=== PATIENT | female | born 1965 | race Caucasian/White ===

== ENCOUNTER → 2022-08-10 | Outpatient (CLI) | payer OTHER, MEDICAID, SELFPAY ==
--- NOTE | 2022-08-10 09:45 | RAD_ITS ---
STUDY: X-RAY CHEST REASON FOR EXAM: Female, 56 years old. Pain. TECHNIQUE: Frontal and lateral views of the chest. COMPARISON: None. FINDINGS: Hyperinflation. Healed granulomatous changes in both apices. Scattered healed parenchymal granulomas. There is no demonstrated pleural abnormality. Normal size heart. Normal mediastinum and radha. Normal visualized pulmonary arteries. Normal visualized aortic arch and descending thoracic aorta. Normal visualized thoracic spine. Normal visualized ribs, clavicles, and shoulders. There is no demonstrated abnormality of the visualized soft tissue structures of the upper abdomen. RAD/Chest PA and Lateral IMPRESSION: Hyperinflation with granulomatous changes. No active or acute cardiopulmonary disease. Electronically Signed: Favian Sibley, at 12:20 EDT ,
[2022-08-10 12:56] LABS: Erythrocyte Sedimentation Rate 6 mm/hr (0-30)
[2022-08-10 12:59] LABS: Absolute Lymphocyte Count 2.34 X10^3/uL (0.83-4.51); Absolute Neutrophil Count 2.8 X10^3/uL (2.0-7.7); Basophil# 0.04 X10^3/uL; Basophil% 0.7 % (0-1); Eosinophil# 0.13 X10^3/uL; Eosinophils% 2.3 % (0-5); Hematocrit 37.7 % (37-47); Hemoglobin 12.6 g/dL (12.0-15.0); Lymphocyte # 2.34 X10^3/ul (0.83-4.51); Lymphocyte % 40.8 % (19-41); Mean Corp Hgb Conc 33.4 g/dL (32-36); Mean Corpuscular Hgb 31.1 pg (27.0-32.0); Mean Corpuscular Volume 93.1 fL (81-99); Mean Platelet Vol. 10.8 fl (6.2-12.0); Monocyte# 0.37 X10^3/uL; Monocyte% 6.5 % (0-10); NRBC Flagged by Analyzer 0 % (0-5); Neutrophil # 2.83 X10^3/uL (2.7-7.7); Neutrophil % 49.4 % (47-70); Platelet Count 235 K/mm3 (150-450); RBC Distribution Width CV 11.7 % (11.6-14.6); Red Blood Count 4.05 M/mm3 (4.2-5.4); White Blood Count 5.7 K/mm3 (4.4-11.0)
[2022-08-10 13:13] LABS: ALB/GLOB Ratio 1.2 RATIO (0.9-2.4); AST(SGOT) 20 U/L (15-37); Alanine Aminotransfer ALT/SGPT 26 U/L (13-56); Alkaline Phosphatase 62 U/L (45-117); Anion Gap 2 (5-15); BUN 9 mg/dL (7-18); BUN/Creat Ratio 15.1 RATIO (10-20); CRP < 2.90 mg/L (0.0-3.0); Chloride 108 mmol/L (98-107); EST Glomerular Filtration Rate 111 mL/min (>60); Est Glom Filt Rate - Afr Amer 134 mL/min (>60); Globulin 3.2 g/dL (2.2-4.2); Glucose 90 mg/dL (74-106); Potassium 3.7 mmol/L (3.5-5.1); Protein, Total 7.2 g/dL (6.4-8.2); Sodium Level 139 mmol/L (136-145)
[2022-08-10 13:55] LABS: Hepatitis B Surface Antibody Reactive; Hepatitis B Surface Antigen Non-Reactive (Nonreactive); Hepatitis C Antibody Non-Reactive (Nonreactive)
[2022-08-11 12:09] LABS: ANTINUCLEAR ANTIBODIES DIRECT Negative (Negative)
[2022-08-12 15:08] LABS: CCP IgG Antibodies > 250 units (0-19); QNTFERON TB Mitogen Value > 10.00 IU/mL (.); QNTFERON TB Nil Value 0.03 IU/mL (.); QNTFERON TB1+ Ag Value 0.05 IU/mL (.); QNTFERON TB2+ Ag Value 0.06 IU/mL (.); QNTIFERON TB Positive Criteria Negative (Negative)
== END | disposition home or self-care (01) ==
LOC: MTLAB 09:42
PROVIDERS: PCP Family Medicine; Referring Provider Internal Medicine Rheumatology; Visit Provider Internal Medicine Rheumatology
DX: M05.79 Rheumatoid arthritis with rheumatoid factor of multiple sites without organ or systems involvement (principal); Z79.899 Other long term (current) drug therapy
CPT/HCPCS: 36415; 71046; 80053; 85025; 85652; 86038; 86140; 86200; 86431; 86480; 86706; 86803; 87340

== ENCOUNTER → 2023-11-22 | Outpatient (CLI) | payer OTHER, SELFPAY ==
--- NOTE | 2023-11-22 10:30 | RAD_ITS ---
INDICATION: preprocedure EXAMINATION/TECHNIQUE: X-RAY - XR Chest 2 Views COMPARISON: Prior study dated: 08/10/2022 FINDINGS: LINES/DEVICES: None. LUNGS: The lungs are hyperexpanded. No consolidation, edema or effusion. No pneumothorax. Mild pleural thickening at the lung apices is unchanged. MEDIASTINUM AND CARDIOVASCULAR STRUCTURES: Cardiac silhouette not enlarged. Central airways and mediastinal contour are unremarkable. BONES AND SOFT TISSUES: No acute abnormality. RAD/Chest PA and Lateral IMPRESSION: No acute pulmonary finding. Electronically Signed: Avila Luna MD at 22:08 EDT ,
== END | disposition home or self-care (01) ==
LOC: RAD 10:18
PROVIDERS: PCP Family Medicine; Referring Provider Physician Assistant Medical; Visit Provider Physician Assistant Medical
DX: R94.39 Abnormal result of other cardiovascular function study (principal)
CPT/HCPCS: 71046

== ENCOUNTER 2023-11-28 08:02 | Day surgery (SDC) | payer OTHER, SELFPAY ==
[2023-11-22 11:29] LABS: Absolute Lymphocyte Count 2.49 X10^3/uL (0.83-4.51); Absolute Neutrophil Count 2.4 X10^3/uL (2.0-7.7); Basophil# 0.03 X10^3/uL; Basophil% 0.6 % (0-1); Eosinophil# 0.06 X10^3/uL; Eosinophils% 1.1 % (0-5); Hematocrit 37.2 % (37-47); Hemoglobin 12.3 g/dL (12.0-15.0); Lymphocyte # 2.49 X10^3/ul (0.83-4.51); Mean Corp Hgb Conc 33.1 g/dL (32-36); Mean Corpuscular Hgb 30.1 pg (27.0-32.0); Mean Corpuscular Volume 91.2 fL (81-99); Mean Platelet Vol. 9.8 fl (6.2-12.0); Monocyte# 0.42 X10^3/uL; Monocyte% 7.8 % (0-10); NRBC Flagged by Analyzer 0 % (0-5); Neutrophil % 44.3 % (47-70); Platelet Count 281 K/mm3 (150-450); RBC Distribution Width CV 12.1 % (11.6-14.6); RBC Distribution Width SD 40.5 fl (35.1-43.9); Red Blood Count 4.08 M/mm3 (4.2-5.4); White Blood Count 5.4 K/mm3 (4.4-11.0)
[2023-11-22 11:38] LABS: Partial Thromboplast Time 31.5 Seconds (24.1-36.2); Prothrombin Time (Protime)PT. 13.1 SECONDS (11.7-14.9)
[2023-11-22 12:03] LABS: Anion Gap 4 (5-15); BUN 8 mg/dL (7-18); BUN/Creat Ratio 13.2 RATIO (10-20); Calcium,Total 9.9 mg/dL (8.5-10.1); Chloride 107 mmol/L (98-107); Creatinine, Serum 0.61 mg/dL (0.55-1.02); EST Glomerular Filtration Rate 108 mL/min (>60); Est Glom Filt Rate - Afr Amer 131 mL/min (>60); Glucose 93 mg/dL (74-106); Potassium 4.2 mmol/L (3.5-5.1); Sodium Level 141 mmol/L (136-145)
[2023-11-25 08:11] VITALS: BMI 17.9
--- NOTE | 2023-11-28 09:50 | ECHOD_ITS ---
Reason For Study: Takotsubo Syndrome Procedure This was a 2D Doppler, Color Flow transthoracic echocardiogram. Performed in slab miller operator holding room. Left Ventricle Normal LV size. The left ventricular ejection fraction is 45 %. There is mild to moderate global hypokinesis of the left ventricle. Right Ventricle Normal RV size. Normal systolic function. Atria Normal left atrium. Normal right atrium. Mitral Valve Normal mitral valve. Mild mitral valve prolapse. Tricuspid Valve Normal tricuspid valve. Aortic Valve Normal aortic valve. Trisinus/trileaflet aortic valve. Pulmonic Valve Normal pulmonic valve. Great Vessels Normal aortic root. The pulmonary artery is normal size. Inferior vena cava collapse with respiration. Pericardium/Pleural No pericardial effusion. MMode/2D Measurements & Calculations LVIDd: 5.0 cm IVSd: 0.81 cm Ao root diam: 2.8 cm LVIDs: 3.7 cm LVPWd: 0.87 cm RVDd: 3.3 cm FS: 25.1 % LAV(MOD-bp): 59.8 ml LVAd ap4: 33.8 cm2 LVAd ap2: 33.7 cm2 LAV(MOD-bp) Indexed: 39.3 ml/m2 LVLd ap4: 8.2 cm LVLd ap2: 8.4 cm LAV(MOD-sp2): 107.5 ml EDV(MOD-sp4): 118.6 ml EDV(MOD-sp2): 111.6 ml LAV(MOD-sp4): 32.9 ml EDV(sp4-el): 118.5 ml EDV(sp2-el): 114.2 ml LVAs ap4: 24.3 cm2 LVAs ap2: 22.9 cm2 LVLs ap4: 7.8 cm LVLs ap2: 7.3 cm ESV(MOD-sp4): 62.9 ml ESV(MOD-sp2): 60.6 ml ESV(sp4-el): 64.2 ml ESV(sp2-el): 60.8 ml EF(MOD-sp4): 47.0 % EF(MOD-sp2): 45.7 % EF(sp4-el): 45.8 % SV(MOD-sp4): 55.7 ml SV(MOD-sp2): 51.0 ml SV(sp4-el): 54.3 ml LA dimension(2D): 2.9 cm LA A4 area: 14.7 cm2 RA A4 area: 13.5 cm2 TAPSE: 2.1 cm Time Measurements MV dec time: 0.25 sec Doppler Measurements & Calculations MV E max tony: 75.6 cm/sec Lat Peak E' Tony: 6.8 cm/sec Med Peak E' Tony: 7.9 cm/sec MV A max tony: 63.3 cm/sec E/E' lat: 11.2 E/E' med: 9.5 MV E/A: 1.2 MV dec slope: 304.1 cm/sec2 Ao V2 max: 129.0 cm/sec LV V1 max: 82.0 cm/sec Ao max P.7 mmHg LV V1 max P.8 mmHg PA V2 max: 69.0 cm/sec ECHO/Echo Complete Interpretation Summary Normal LV size. The left ventricular ejection fraction is 45 %. There is mild to moderate global hypokinesis of the left ventricle. Mild mitral valve prolapse. Ordering Physician: Adarsh Melton Referring Physician: Zahraa Barlow Performed By: Gely Burton RDCS
--- NOTE | 2023-11-28 09:57 | CL.D_ITS ---
Patient Name: ELIEZER GOMEZ Study Date: 11/28/2023 Performing: Adarsh Melton MD Ht: 65 inches 165.1 cm : 1965 Wt: 108 lbs 48.99 kg Age: 58 Gender: female BSA: 1.52 PROCEDURE(S) PERFORMED DC01-(37436)LHC/COR/LV CLINICAL PROFILE AND INDICATIONS Indications: Suspected CAD Heart Failure: None Stress/Imaging Date: 11/12/23Stress Test with SPECT MPI: Positive Low Risk CAD Presentations: Stable angina. CONCLUSIONS Non obstructive coronary arteries Cardiomyopathy: Takotsubo RECOMMENDATIONS Medical therapy DESCRIPTION OF PROCEDURE The patient arrived to the procedure lab. The risks and benefits of the procedure as well as a full description of our services here and current unavailability of surgical backup were fully explained to the patient and/or their significant other prior to the catheterization. The Timeout was completed, verifying the correct patient and procedure. The patient's procedural site was prepped and draped in the usual fashion. Local anesthetic was given subcutaneously to right radial region with Lidocaine 2%. Using a modified Seldinger technique, arterial access was obtained via the right radial artery, a 6Fr sheath was inserted. Right Coronary Artery selective angiography was then performed in multiple views using a 5 Fr. 4.0 [place] catheter. Left Coronary Artery selective angiography was performed in multiple views using a 5 Fr. 4.0 [place] catheter. Left Ventriculography was performed in WILKES projection using a 5 Fr. Pigtail catheter. LV to AO pullback pressures were then recorded.The arterial sheath was pulled and a TR Band was applied for hemostasis CORONARY ANGIOGRAPHY DOMINANCE: Right Dominant LEFT HEART ASSESSMENT Left Ventricular Ejection Fraction: by LV Gram 45 % Anterior Hypokinesis - Mild Depressed Left Ventricular systolic function Consistent with Takotsubo cardiomyopathy. LEFT MAIN: Angiographically normal LEFT ANTERIOR DESCENDING ARTERY: Mild luminal irregularities less than 30% DIAGONAL 1: Ostial - 40 % Stenosis CIRCUMFLEX ARTERY: No significant disease noted RIGHT CORONARY ARTERY: Moderate luminal irregularities up to 50% COMPLICATIONS No Complications PROCEDURE MEDICATIONS Fentanyl 50 mcg IV Versed 1 mg IV Versed 1 mg IV Fentanyl 25 mcg IV Oxygen: 2 L/min via nasal cannula Heparin given IA 11/28/2023 09:36:15 Verapamil 2.5mg, Ntg 100mcgs, 3000 units of Heparin given IA 11/28/2023 09:36:15 SUMMARY OF HEMODYNAMIC DATA Time AIR REST ECG 08:37:40 AO 106/67 (85) SA 09:39:21 LV 126/0, 5 09:45:42 LV 125/-1, 6 09:45:50 LV 133/0, 7 09:46:42 LVp 137/-2, 8 09:46:48 AOp 135/64 (91) 09:46:55 Signed By Adarsh Melton MD On 11/28/2023 09:56:56 Adarsh Melton MD
== END 2023-11-28 13:25 | disposition home or self-care (01) ==
PROVIDERS: Physician Assistant Medical; PCP Family Medicine; Referring Provider Internal Medicine Cardiovascular Disease; Visit Provider Internal Medicine Cardiovascular Disease
DX: I25.118 Atherosclerotic heart disease of native coronary artery with other forms of angina pectoris (principal); I51.81 Takotsubo syndrome; I34.1 Nonrheumatic mitral (valve) prolapse; Z79.82 Long term (current) use of aspirin; Z79.899 Other long term (current) drug therapy; Z87.891 Personal history of nicotine dependence
CPT/HCPCS: 36415; 80048; 85025; 85610; 85730; 93306; 93458; 99152; 99153; J7040; Q9967; A4216; C1769; C1894